=== PATIENT | male | born 1975 | race Two or more races ===

== ENCOUNTER → 2016-09-17 | Outpatient (CLI) | payer SELFPAY ==
--- NOTE | 2016-09-17 10:11 | RAD ---
Chest, 2 views, 09/17/2016: History: Cough, chest tightness, dyspnea Comparison is made to a study from 02/23/2008. The heart size and pulmonary vascularity are normal. No pulmonary infiltrates are seen. There is no evidence of pleural fluid. IMPRESSION: No acute cardiopulmonary abnormality is detected.
== END | disposition home or self-care (01) ==
LOC: DXRADRC 09:32
PROVIDERS: ATTEND Physician Assistant
DX: R05 Cough (principal); R06.00 Dyspnea, unspecified; R07.89 Other chest pain
CPT/HCPCS: 71020

== ENCOUNTER 2021-01-23 09:25 | Emergency (ER) | payer BC ==
[~2021-01-23] VITALS: Ht 182.9 cm; Wt 109.0 kg
--- NOTE | 2021-01-23 10:11 | RAD ---
EXAMINATION: XR CHEST 1V CLINICAL HISTORY: covid positive, fever, cough, short of breath EXAM DATE/TIME: 01/23/2021 9:51 AM COMPARISON: 09/17/2016 FINDINGS: Lines, Tubes, and Devices: None. Cardiomediastinal Silhouette: Within normal limits. Lungs and Pleura: Pulmonary hypoexpansion with mild patchy opacities in the left greater than right l ower lung zones. No evidence of pleural effusion or pneumothorax. Bones and Soft Tissues: Degenerative changes of the thoracic spine. IMPRESSION: Mild patchy airspace disease in the lower lung zones, possibly related to subsegmental atelectasis bu t mild infectious process is not excluded. Electronically signed by: Giuseppe Pham DO (01/23/2021 10:08 AM) [id number]
--- NOTE | 2021-01-23 10:27 | PHYS DOC ---
Past History Past Surgical History: Appendectomy, Other Additional Past Surgical Histo: HERNIA General Adult EDM: Chief Complaint: FEVER HPI: HPI: Patient is a 45-year-old male coming in for multiple complaints related to his COVID-19 infection. Patient states he was tested 3 days ago. Patient states his son also was diagnosed with Covid. Has not had his Covid vaccines. Mild headache, body aches, fever, abdominal pain. Patient states he is taking 1 g of Tylenol every 6 hours, and has been for the past 2.5 days. States his fever will come down to 500 but comes back up, T-max 102.7. Review of Systems: Review of Systems: All other systems within normal limits except for as noted in the HPI Current Medications: Current Meds: Current Medications Medications (Trade) Dose Ordered Sig/Destini Start Time Stop Time Status Last Admin Dose Admin Ketorolac Tromethamine (Toradol 15mg Vial) 15 mg 1X ONCE 01/23/21 10:30 01/23/21 10:31 UNV Sodium Chloride 1,000 ml @ 1,000 mls/hr 1X ONCE 01/23/21 10:30 01/23/21 11:29 UNV Allergies: Allergies: Allergies Coded Allergies Type Severity Reaction Last Updated Verified No Known Drug Allergies 01/23/21 No Physical Exam: PE: Constitutional: Well developed, well nourished, no acute distress, non-toxic appearance. [] HENT: Normocephalic, atraumatic, bilateral external ears normal, nose normal. [] Eyes: PERRLA, conjunctiva normal, no discharge. [] Neck: No rigidity, supple, no stridor. [] Cardiovascular: Regular rate and rhythm, brisk cap refill [] Lungs & Thorax: Non labored symmetric respirations, no tachypnea or respiratory distress [] Abdomen: Soft, nondistended. Skin: Warm, dry, no erythema, no rash. [] Back: Unremarkable Extremities: No deformities, range of motion grossly intact, no lower extremity edema [] Neurologic: Alert and oriented X 3, no focal deficits noted. [] Psychologic: Affect normal, judgement normal, mood normal. [] Constitutional: Well developed, well nourished, no acute distress, non-toxic appearance. [] HENT: Normocephalic, atraumatic, bilateral external ears normal, oropharynx moist, no oral exudates, nose normal. [] Eyes: PERRLA, EOMI, conjunctiva normal, no discharge. [] Neck: Normal range of motion, no tenderness, supple, no stridor. [] Cardiovascular:Heart rate regular rhythm, no murmur [] Lungs & Thorax: Bilateral breath sounds clear to auscultation [] Abdomen: Bowel sounds normal, soft, no tenderness, no masses, no pulsatile yordy s. [] Skin: Warm, dry, no erythema, no rash. [] Back: No tenderness, no CVA tenderness. [] Extremities: No tenderness, no cyanosis, no clubbing, ROM intact, no edema. [] Neurologic: Alert and oriented X 3, normal motor function, normal sensory function, no focal deficits noted. [] Psychologic: Affect normal, judgement normal, mood normal. [] Current Patient Data: Vital Signs: Vital Signs Date Time Temp Pulse Resp B/P (MAP) Pulse Ox O2 Delivery O2 Flow Rate FiO2 01/23/21 09:49 99.8 97 18 166/108 97 Room Air EKG: EKG: Sinus rhythm, heart rate 90 bpm, normal axis, no ST elevation or depression, no ectopy, normal intervals. [] Radiology/Procedures: Radiology/Procedures: [][address] [address] IMAGING REPORT Signed PATIENT: MERLIN VENEGAS EACCOUNT: [id number] : 1975 LOCATION: ER AGE: 45 SEX: M EXAM STATUS: REG ER ORD. PHYSICIAN: SPENCER AGUILAR MD REASON: covid positive, fever, cough, short of breath PROCEDURE: CHEST AP ONLY EXAMINATION: XR CHEST 1V CLINICAL HISTORY: covid positive, fever, cough, short of breath EXAM DATE/TIME: 01/23/2021 9:51 AM COMPARISON: 09/17/2016 FINDINGS: Lines, Tubes, and Devices: None. Cardiomediastinal Silhouette: Within normal limits. Lungs and Pleura: Pulmonary hypoexpansion with mild patchy opacities in the left greater than right lower lung zones. No evidence of pleural effusion or pneumothorax. Bones and Soft Tissues: Degenerative changes of the thoracic spine. IMPRESSION: Mild patchy airspace disease in the lower lung zones, possibly related to subsegmental atelectasis but mild infectious process is not excluded. Electronically signed by: Giuseppe Gooden DO (01/23/2021 10:08 AM) [id number] DICTATED AND SIGNED BY: GIUSEPPE GOODEN DO DATE: 01/23/21 1007 CC: SPENCER AGUILAR MD; VANESSA SHERMAN ~MTH0 0 Heart Score: C/O Chest Pain: No HEART Score for Chest Pain: HEART Score for Chest Pain Response (Comments) Value History Slighlty/Non-Suspicious 0 ECG Normal 0 Age < 45 0 Risk Factors No Risk Factors 0 Troponin < Normal Limit 0 Total 0 Risk Factors: Risk Factors: DM, Current or recent (<one month) smoker, HTN, HLP, family history of CAD, obesity. Risk Scores: Score 0 - 3: 2.5% MACE over next 6 weeks - Discharge Home Score 4 - 6: 20.3% MACE over next 6 weeks - Admit for Clinical Observation Score 7 - 10: 72.7% MACE over next 6 weeks - Early Invasive Strategies Course & Med Decision Making: Course & Med Decision Making Pertinent Labs and Imaging studies reviewed. (See chart for details) [] Dragon Disclaimer: Dragon Disclaimer: This electronic medical record was generated, in whole or in part, using a voice recognition dictation system. Departure Departure: Impression: Primary Impression: COVID Disposition: HOME / SELF CARE / HOMELESS Condition: STABLE Referrals: VANESSA SHERMAN (PCP) Additional Instructions: Alternate Tylenol and ibuprofen as needed for discomfort and fever, increase yorr fluid intake as well. Scripts Prednisone (PREDNISONE) 50 Mg Tablet 1 TAB PO DAILY for steroid for 5 Days, #5 TAB You received this medication in the emergency room today. You will starting your next dose tomorrow. Prov: SPENCER AGUILAR MD 01/23/21 Doxycycline Monohydrate (Mondoxyne Nl) 100 Mg Capsule 1 CAP PO BID for antibiotic for 5 Days, #10 CAP 0 Refills Prov: SPENCER AGUILAR MD 01/23/21 SPENCER AGUILAR MD Jan 23, 2021 10:27
[2021-01-23] MEDS ORDERED: IV NORMAL SALINE 1,000ML 1,000 ML IV ONE (10:30)
[2021-01-23] MEDS ORDERED: KETOROLAC 15 MG/ML VIAL. IVP ONE (10:30)
[2021-01-23 10:39] LABS: BASO % 0 % (0-3); EOS % 0 % (0-3); HEMATOCRIT 45.9 % (39.0-53.0); HEMOGLOBIN 15.6 g/dL (13.0-17.5); LYMPH # 0.9 x10^3/uL (1.0-4.8); LYMPH % 20 % (24-48); MEAN CORPUSCULAR HEMOGLOBIN 30 pg (25-35); MEAN CORPUSCULAR HGB CONC 34 g/dL (31-37); MEAN CORPUSCULAR VOLUME 87 fL (79-100); MONO # 0.7 x10^3/uL (0.0-1.1); MONO % 15 % (0-9); NEUT # 2.9 x10^3uL (1.8-7.7); NEUT % 64 % (31-73); PLATELET COUNT 152 x10^3/uL (140-400); RED BLOOD COUNT 5.25 x10^6/uL (4.30-5.70); RED CELL DISTRIBUTION WIDTH 13.9 % (11.5-14.5); WHITE BLOOD COUNT 4.6 x10^3/uL (4.0-11.0)
[2021-01-23 10:46] LABS: CALCIUM 8.5 mg/dL (8.5-10.1); GFR 81.6; POTASSIUM 3.5 mmol/L (3.5-5.1)
[2021-01-23 10:50] LABS: ACETAMIN < 2.0 mcg/mL (10-30)
[2021-01-23 10:51] LABS: CLARITY,URINE CLEAR; COLOR,URINE AMBER; GLUCOSE,URINE NEG (NEG)
[2021-01-23 10:52] LABS: BACTERIA,URINE 0 /HPF (0-FEW); BILIRUBIN,URINE SMALL (NEG); NITRITE,URINE NEG (NEG); RBC,URINE 0 /HPF (0-2); SQUAMOUS EPITHELIAL CELL,UR OCC /LPF; WBC,URINE 0 /HPF (0-4)
[2021-01-23 11:02] LABS: ALBUMIN 3.5 g/dL (3.4-5.0); ALBUMIN/GLOBULIN RATIO 0.9 (1.0-1.7); TOTAL BILIRUBIN 0.8 mg/dL (0.2-1.0); TOTAL PROTEIN 7.4 g/dL (6.4-8.2)
[2021-01-23] MEDS ORDERED: DOXY-167 PO (11:17)
[2021-01-23] MEDS ORDERED: PRED50TA PO (11:17)
[2021-01-23 11:34] VITALS: BP 152/77
--- NOTE | 2021-01-26 13:29 | EKG ---
[address] [address] Test Date: 2021-01-23 Test Time: 09:51:17 Pat Name: MERLIN VENEGAS Department: Room: Gender: M Chemistry Associate: CM : 1975 Requested By: SPENCER AGUILAR Order Number: [id number] Reading MD: Measurements Intervals Warrior Rate: 93 P: 34 CT: 134 QRS: 9 QRSD: 90 T: 26 QT: 334 QTc: 418 Interpretive Statements SINUS RHYTHM NORMAL ECG RI6.02 No previous ECG available for comparison
== END 2021-01-23 11:35 | disposition home or self-care (01) ==
LOC: ER 09:25
DX: U07.1 COVID-19 (principal)
CPT/HCPCS: 36415; 71045; 80053; 80329; 81001; 83605; 83880; 84484; 85025; 85379; 85610; 93005; 96361; 96374; 99285; J1885; J7030; G0480